=== PATIENT | male | born 1990 | race Caucasian/White ===

== ENCOUNTER 2020-11-16 16:18 | Outpatient (REF) | payer MEDICAID, OTHER, SELFPAY ==
--- NOTE | ~2020-11-16 | XR_ITS ---
EXAMINATION: XR KNEE, LEFT CLINICAL INFORMATION: Pain COMPARISON: None TECHNIQUE: Four views of the left knee. FINDINGS: Bones and soft tissues are normal. No fracture or joint effusion. Alignment is anatomic. Joint spaces are well maintained. No abnormal soft tissue calcification. XR/XR knee LT 4V IMPRESSION: Normal left knee.
== END 2020-11-16 16:19 | disposition home or self-care (01) ==
LOC: HO.XRAY 16:18
PROVIDERS: PCP Registered Nurse; Visit Provider Registered Nurse
DX: M25.562 Pain in left knee (principal)
CPT/HCPCS: 73564

== ENCOUNTER 2023-03-22 11:20 | Outpatient (REF) | payer MEDICAID, OTHER, SELFPAY ==
[2023-03-22 13:47] LABS: Cholesterol 188 mg/dL (<200); HDL Cholesterol 55 mg/dL (>40); LDL Cholesterol Calculated 119 mg/dL (<100); Triglycerides 71 mg/dL (<150)
[2023-03-29 13:04] LABS: Testosterone, Free 107.8 pg/mL (35.0-155.0); Testosterone, Total 709 ng/dL (250-1100)
== END 2023-03-22 11:21 | disposition home or self-care (01) ==
LOC: HO.HHCL 11:20
PROVIDERS: Visit Provider Registered Nurse
DX: E78.2 Mixed hyperlipidemia (principal); Z13.89 Encounter for screening for other disorder
CPT/HCPCS: 36415; 80061; 84402; 84403

== ENCOUNTER 2024-11-15 08:14 | Outpatient (REF) | payer SELFPAY ==
--- OUTSIDE RECORDS SUMMARY | 2024-11-15 08:18 | XMS_ITS | Clinical Summary ---
Author Organization [facility] Address [address] [place] [address] Care Team Providers Care Skin Care Consultant Name Role Phone Elicia Bruce KARINA Primary Care Provider [phone] Allergies No known active allergies Medications biotin 1 mg tablet Take 1,000 mcg by mouth daily. Active omeprazole (PriLOSEC) 20 mg capsule TAKE 1 CAPSULE BY MOUTH EVERY DAY BEFORE A MEAL NEEDED 09/11/2020 Active tamsulosin (FLOMAX) 0.4 mg capsule TAKE 1 CAPSULE BY MOUTH DAILY 30 MINUTES AFTER THE SAME MEAL EVERY DAY 08/04/2020 Active ketotifen (ZADITOR) 0.025 % ophthalmic solution PLACE 1 DROP INTO THE AFFECTED EYE(S) TWICE DAILY 12/23/2019 Active atorvastatin (LIPITOR) 20 mg tablet Take 20 mg by mouth daily. 09/11/2020 Active Social History Tobacco Use Types Packs/Day Years Used Date Smoking Tobacco: Never Smokeless Tobacco: Never Sex and Gender Information Value Date Recorded Sex Assigned at Not on file Legal Sex Male 9:58 AM EDT Gender Identity Not on file Sexual Orientation Not on file Last Filed Vital Signs Vital Sign Reading Time Taken Comments Blood Pressure 121/75 03/09/2021 4:00 PM EDT Pulse 53 03/09/2021 4:00 PM EDT Temperature - - Respiratory Rate - - Oxygen Saturation - - Inhaled Oxygen Concentration - - Weight - - Height - - Body Mass Index - - Plan of Treatment Health Maintenance Due Date Last Done Comments HIV Screening 1991 Varicella Vaccines (1 of 2 - 13+ 2-dose series) 2004 Hepatitis B Vaccines (1 of 3 - 19+ 3-dose series) 2010 COVID-19 Vaccine (2023-2 5 season) 2024 12/28/2020, 11/27/2020 Alcohol/Substance Use Screening 07/10/2024 Influenza Vaccine (Season Ended) 2025 DTaP,Tdap,and Td Vaccines (2 - Td or Tdap) 03/08/2029 03/08/2019 RSV Vaccine (60+ years old and patients) (1 - 1-dose 75+ series) 2066 Pneumococcal Vaccine: Pediatric (0-5 Years) and At-Risk Patients (6-50 Years) Aged Out No longer eligible based on patient's age to complete this topic Insurance [facility] HSNO/FREE CARE Care Teams Skin Care Consultant Relationship Specialty Start Date End Date Elicia Bruce NP [address] [phone] PCP - General 02/18/22
--- OUTSIDE RECORDS SUMMARY | 2024-11-15 08:18 | XMS_ITS | Clinical Summary ---
Author Organization [email or web address] Address [address] [facility] 7 [place] [address] Care Team Providers Care Journeyman Carpenter Name Role Phone Maral Melvin NP Primary Care Provider [phone] Allergies No known active allergies Medications SM Vitamin D3 50 MCG capsule Take 50 mcg by mouth in the morning. 08/11/19 22 Active ibuprofen 800 MG tablet TAKE 1 TABLET BY MOUTH THREE TIMES DAILY WITH FOOD NEEDED FOR PAIN 08/06/19 22 Active biotin 1000 MCG tablet Take 1,000 mcg by mouth in the morning. 2024 Discontinued(M ed list cleanup (will not trigger notification to Pharmacy)) Compound W 17 % external solution APPLY TO FINGER DIRECTED NEEDED FOR 12 WEEKS 02/17/20 22 2024 Discontinued(M ed list cleanup (will not trigger notification to Pharmacy)) omeprazole (PriLOSEC) [address] capsule TAKE 1 CAPSULE BY MOUTH EVERY DAY BEFORE A MEAL NEEDED 05/20/20 22 2024 Discontinued(M ed list cleanup (will not trigger notification to Pharmacy)) Multiple Vitamins-Minerals (Multivitamin Gummies Adult) chewable tablet Take 1 gummy a day 02/17/20 22 2024 Discontinued(M ed list cleanup (will not trigger notification to Pharmacy)) tamsulosin (Flomax) 0.4 MG 24 hr capsule TAKE 1 CAPSULE BY MOUTH DAILY 30 MINUTES AFTER THE SAME MEAL EVERY DAY 08/06/19 22 2024 Discontinued(M ed list cleanup (will not trigger notification to Pharmacy)) triamcinolone (Kenalog) 0.5 % ointment Apply topically 2 times daily. 02/02/20 18 2024 Discontinued(M ed list cleanup (will not trigger notification to Pharmacy)) omega-3 acid ethyl esters (Lovaza) 1 g capsuleIndication s:Mixed hyperlipidemia Take 1 capsule (1 g) by mouth in the morning. 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 Hepatitis C antibody test positive 08/20/2018 Vitamin D deficiency 08/20/2018 Encounters Date Type Department Care Team Description 11/01/2024 10:00 AM EDT Office Visit [facility] MED[facility] [address] [place] [phone] Maral Melvin NP Other fatigue (Primary Dx); Mixed hyperlipidemia; Hypovitaminosis D 11/01/2024 Travel 10/24/2024 Telephone [facility] [address] [place] [phone] Jimmy Godfrey MA chartprep 10/22/2024 Patient Outreach [facility] [address] [place] [address] Maral Melvin NP Pre-visit Planning ([facility] unable to reach [facility]) 10/18/2024 Telephone [facility] [address] [place] [phone] Maral Melvin NP Lab Orders (/) from Last 3 Months Family History Medical History Relation Name Comments Cancer Maternal Grandmother Diabetes Mother Relation Name Status Comments Maternal Grandmother Mother Social History Tobacco Use Types Packs/Day Years Used Date Smoking Tobacco: Former Cigarettes Smokeless Tobacco: Never Tobacco Cessation:Counseling Given: Not Answered Alcohol Use Standard Drinks/Week Comments Never 0 (1 standard drink = 0.6 oz pur e alcohol) Depression Answer Date Recorded Patient Health Questionnaire-9 Score 4 11/01/2024 Patient Health Questionnaire-9 Score 4 11/01/2024 Last PHQ-9: Questionnaire Data Not on file 0 11/01/2024 Housing Stability Answer Date Recorded What is your housing situation today? I have [place] 11/01/[address] you li ve. Do you have problems with any of the following? I am not sure 11/01/2024 Food Insecurity Answer Date Recorded Within the past 12 months, y ou worried that your food would run out before you got money to buy more: Never True 11/01/2024 Within the past 12 months,th e food you bought just didn't last and you didn't have enough money to get more: Never True Transportation Answer Date Recorded In the past 12 months, has l ack of transportation kept you from medical appts, meetings, work or from getting things needed for daily living? No 11/01/2024 Utilities Answer Date Recorded In the past 12 months, has t he electric, gas, oil or water company threatened to shut off services in your home? No 11/01/2024 Depression Answer Date Recorded Patient Health Questionnaire-2 Score 1 11/01/2024 Internet Access Answer Date Recorded Internet Access Q1 Yes 11/01/2024 Internet Access Q2 Not on file 11/01/2024 Sex and Gender Information Value Date Recorded Sex Assigned at Male 05/09/2022 10:24 AM EDT Legal Sex Male 10:24 AM EDT Gender Identity Male 05/09/2022 10:24 AM EDT Sexual Orientation Straight 05/09/2022 10 :24 AM EDT Last Filed Vital Signs Vital Sign Reading Time Taken Comments Blood Pressure 108/65 11/01/2024 10:27 AM EDT Pulse 60 11/01/2024 10:27 AM EDT Temperature 36.9 ??C (98.4 ??F) 11/01/2024 10:27 AM E DT Respiratory Rate 21 11/01/2024 10:27 AM EDT Oxygen Saturation 98% 11/01/2024 10:27 AM EDT Inhaled Oxygen Concentration - - Weight 70.4 kg (155 lb 3.2 oz) 11/01/2024 10:27 AM EDT Height 165.1 cm (5' 5 ) 11/01/2024 10:27 AM EDT Body Mass Index 25.83 11/01/2024 10:27 AM EDT Plan of Treatment Upcoming Encounters Date Type Department Care Team (Late st Contact Info) Description 12/13/2024 11:00 AM EDT Office Visit [facility] MED[facility]INE [address] [place], [place] [phone] Maral Melvin NP 230 [place] [address] Health Maintenance Due Date Last Done Comments Alcohol/Substance Use Screening 2003 Family Planning (PISQ) 2006 Hepatitis B Vaccines (1 of 3 - 19+ 3-dose series) 2010 Dental Oral Exam 07/20/2023 01/16/2023, , 07/24/2019, Additional history exists Dental Prophylaxis 07/20/2023 01/16/2023, 0 09/05/2019, 03/02/2018, Additional history exists Dental X-Ray: Bitewings 01/18/2024 01/17/20 23, 03/28/2022, 07/24/2019, Additional history exists COVID-19 Vaccine ( season) 2024 12/28/2020, 11/27/2020 Influenza Vaccine (#1) 2024 Dental X-Ray: Full Mouth 03/29/2025 03/28/2022, 0511/2016 Depression Screening 11/01/2025 11/01/2024, 11/02/19 SDOH Screening 11/01/2025 11/01/2024 Tobacco Screening 11/01/2025 11/01/2024 DTaP/Tdap/Td Vaccines (2 - Td or Tdap) 03/08/2029 03/08/2019 Zoster Vaccines (1 of 2) 2041 RSV Patients and Patients Aged 60 years or older (1 - 1-dose 75+ series) 2066 HIV Screening Completed 07/15/2022, 07/11, 07/28/2020, Additional history exists Hepatitis C Screening Completed 07/15/2022 , 07/28/2020, 01/06/2020 HIB Vaccines Aged Out No longer eligi ble based on patient's age to complete this topic HPV Vaccines Aged Out No longer eligi ble based on patient's age to complete this topic Hepatitis A Vaccines Aged Out No long er eligible based on patient's age to complete this topic IPV Vaccines Aged Out No longer eligi ble based on patient's age to complete this topic Meningococcal Vaccine Aged Out No zachary naresh eligible based on patient's age to complete this topic Pneumococcal Vaccine: Pediatrics (0 to 5 Years) and At-Risk Patients (6 to 49) Years) Aged Out No longer eligible based on patient's age to complete this topic RSV under 20 months Aged Out No longe r eligible based on patient's age to complete this topic Rotavirus Vaccines Aged Out No longer eligible based on patient's age to complete this topic Procedures Procedure Name Priority Date/Time Associated Diagnosis Comments PROPHYLAXIS - ADULT Routine 01/16/2023 2 :00 PM EDT BITEWINGS - 4 RADIOGRAPHIC IMAGES Routine 01/16/2023 2:00 PM EDT PERIODIC ORAL EVALUATION - ESTABLISHED PATIENT Routine 01/16/2023 2:00 PM EDT Excessive attrition of teeth, limited to enamel Encounter for dental examination HEPATITIS C AB W/REFL TO HCV RNA, QN, PCR Routine 07/15/2022 1:17 PM EST Routine screening for STI (sexually transmitted infection) HIV 1/2 ANTIGEN/ANTIBODY, FOURTH GENERATION W/RFL Routine 07/15/2022 1:17 PM EST Routine screening for STI (sexually transmitted infection) INTRAORAL - COMPLETE SERIES OF RADIOGRAPHIC IMAGES Routine 03/28/2022 12:00 AM EDT from Last 3 Months or Most Recently Relevant to Health Maintenance Results * Hepatitis C Antibody with Reflex to HCV, RNA, Quantitative, Real-Time PCR (07/15/2022 1:17 PM EST) Hepatitis C Antibody NON-REACT TAD NON-REACT TAD [facility] Index 0.09 <1.00 [facility] Comment: HCV antibody was non-reactive. There is no laboratory evidence of HCV infection. In most cases, no further action is required. However, if recent HCV exposure is suspected, a test for HCV RNA (test code 76206) is suggested. For additional information please refer to http://education.Parallels/faq/GAP90l0 (This link is being provided for informational/ educational purposes only.) Blood Venous blood specimen / Unknown 07/15/2022 1:17 PM EST 07/15/2022 1:18 PM EST Narrative [facility] - 07/18/2022 1:52 PM EST FASTING:YES FASTING: YES [facility] B[facility] Final Result [facility] [address], [place] [address] [facility] [place] [facility] [address], ([address]) [place] [address] * HIV-1/2 Antigen and Antibodies, Fourth Generation, with Reflexes (07/15/2022 1:17 PM EST) HIV Antigen/Antibody, 4th Generation NON-REAC TIVE NON-REAC TIVE [facility] [place] [facility] Comment: HIV-1 antigen and HIV-1/HIV-2 antibodies were not detected. There is no laboratory evidence of HIV infection. PLEASE NOTE: This information has been disclosed to you from records whose confidentiality may be protected by state law. ??If your state requires such protection, then the state law prohibits you from making any further disclosure of the information without the specific written consent of the person to whom it pertains, or as otherwise permitted by law. A general authorization for the release of medical or other information is NOT sufficient for this purpose. ?? For additional information please refer to http://education.Parallels/faq/CBZ255 (This link is being provided for informational/ educational purposes only.) The performance of this assay has not been clinically validated in patients less than 2 years old. Blood Venous blood specimen / Unknown 07/15/2022 1:17 PM EST 07/15/2022 1:18 PM EST Narrative [facility] - 07/18/2022 1:52 PM EST FASTING:YES FASTING: YES Elicia Bruce [facility] LAB BLOOD ORDERABLES Final Result [facility] [address], [place] [address] [facility] [address], ([address]) [place] [address] from Last 3 Months or Most Recently Relevant to Health Maintenance Insurance [place] [facility] ADULT DENTAL - HSN FULL (MEDICAID) Care Teams Journeyman Carpenter Relationship Specialty Start Date End Date Maral Melvin NP [address] [place] [phone] PCP - General Family Medicine 04/14/23
--- OUTSIDE RECORDS SUMMARY | 2024-11-15 08:18 | XMS_ITS | Referral Summary ---
Author Organization [facility] Address [address] [place] [address] Care Team Providers Care Inspector And Tester Name Role Phone Elicia Bruce KARINA Primary Care Provider [phone] Allergies No known active allergies Medications biotin [...] Mass Index - - Plan of Treatment Not on file Insurance [facility] HSNO/FREE CARE Care Teams Inspector And Tester Relationship Specialty Start Date End Date Elicia Bruce NP [address] [address] PCP - General 02/18/22
--- OUTSIDE RECORDS SUMMARY | 2024-11-15 08:18 | XMS_ITS | Encounter Summary ---
Author Organization [facility] Address [address] [place] [address] [address] [address] Care Team Providers Care Rating Specialist Name Role Phone Elicia Bruce Primary Care Provider [phone] Maral Melvin NP Primary Care Provider [phone] Encounter Details Date Type Department Care Team (Latest Contact Info) Description 09/05/2019 Abstract [facility] CONVERSIONS Dental, Provider, DDS Social History Tobacco Use Types Packs/Day Years Used Date Smoking Tobacco: Never Assessed Sex and Gender Information Value Date Recorded Sex Assigned at Male 05/09/2022 10:24 AM EDT Legal Sex Male 10:24 AM EDT Gender Identity Male 05/09/2022 10:24 AM EDT Sexual Orientation Straight 05/09/2022 10 :24 AM EDT documented as of this encounter Plan of Treatment Upcoming Encounters Date Type Department Care Team (Late st Contact Info) Description 12/13/2024 11:00 AM EDT Office Visit [facility] [address] [place] [address] Maral Melvin NP [address] [place] [address] documented as of this encounter Visit Diagnoses Not on filedocumented in this encounter Care Teams Rating Specialist Relationship Specialty Start Date End Date Elicia Bruce FNP PCP - General Family Medicine 08/10/21 04/13/23 Maral Melvin NP [address] [place] [address] PCP - General Family Medicine 04/14/23 documented as of this encounter
--- OUTSIDE RECORDS SUMMARY | 2024-11-15 08:18 | XMS_ITS | Encounter Summary ---
Author Organization [employer] Address [address] [place] [address] 7 [place] [address] Care Team Providers Care Aging Box Hand Name Role Phone Elicia Bruce Primary Care Provider [phone] Maral Melvin NP Primary Care Provider [phone] Reason for Visit * Reason Onset Date Comments Appointment Request 07/12/2022 Encounter Details Date Type Department Care Team (Late st Contact Info) Description 07/12/2022 Telephone [facility] MEDICINE [address] [place] [phone] Elicia Bruce FNP [address] [place] [address] Dept [place] [address] Appointment Request Social History Tobacco Use Types Packs/Day Years Used Date Smoking Tobacco: Never Assessed Depression Answer Date Recorded Patient Health Questionnaire-9 Score 0 07/14/2022 Depression Answer Date Recorded Patient Health Questionnaire-2 Score 0 07/14/2022 Sex and Gender Information Value Date Recorded Sex Assigned at Male 05/09/2022 10:24 AM EDT Legal Sex Male 10:24 AM EDT Gender Identity Male 05/09/2022 10:24 AM EDT Sexual Orientation Straight 05/09/2022 10 :24 AM EDT COVID-19 Exposure Response Date Recorded In the last 10 days, have yo u been in contact with someone who was confirmed or suspected to have Coronavirus/COVID-19? No / Unsure 07/14/2022 11:22 AM EST documented as of this encounter Miscellaneous Notes * Telephone Encounter - Anurag Reaves - 07/12/2022 4:47 PM EST Tc from pt requesting to r/s appt on 07/14/22 ( Hearing Sensity Left Ear ) Please contact pt at [phone] documented in this encounter Plan of Treatment Upcoming Encounters Date Type Department Care Team (Late st Contact Info) Description 12/13/2024 11:00 AM EDT Office Visit [facility] MEDICINE [address] [place] [address] Maral Melvin NP [address] [place] [address] documented as of this encounter Visit Diagnoses Not on filedocumented in this encounter Care Teams Aging Box Hand Relationship Specialty Start Date End Date Elicia Bruce FNP PCP - General Family Medicine 08/10/21 04/13/23 Maral Melvin NP [address] [place] [address] PCP - General Family Medicine 04/14/23 documented as of this encounter
[2024-11-15 11:07] LABS: MANUAL DIFF FLAG NO
[2024-11-15 11:15] LABS: Basophils Percent Auto 0.6 % (0-2); Eosinophils Absolute Auto 0.2 X10*3/uL (0.0-0.4); Eosinophils Percent Auto 3.2 % (0-4); Hematocrit 40.8 % (42.0-52.0); Hemoglobin 13.8 g/dl (14.0-18.0); Imm Gran Abs Auto 0.01 X10*3/uL (0.00-0.03); Imm Gran Pct Auto 0.2 % (0.0-0.4); Lymphocytes Absolute Auto 1.9 X10*3/uL (1.2-4.9); Lymphocytes Percent Auto 38.3 % (20-40); Mean Corpuscular HGB Conc 33.8 g/dl (31.0-36.0); Mean Corpuscular Hemoglobin 28.3 pg (27.0-33.0); Mean Corpuscular Volume 83.6 fL (80.0-98.0); Mean Platelet Volume 9.8 fL (9.4-12.4); Monocytes Absolute Auto 0.4 X10*3/uL (0.1-1.2); Monocytes Percent Auto 7.3 % (2-11); Neutrophils Absolute Auto 2.5 x10*3/uL (2.0-8.3); Neutrophils Percent Auto 50.4 % (45-73); Platelet Count 263 X10*3/uL (160-400); Red Blood Count 4.88 X10*6/uL (4.60-5.80); Red Cell Distribution Width 12.9 % (11.0-16.0)
[2024-11-15 11:35] LABS: Anion Gap 9 (12-20); Blood Urea Nitrogen 21 mg/dL (9-16); Calcium 9.4 mg/dL (8.4-10.2); Carbon Dioxide 30 mmol/L (22-29); Chloride 102 mmol/L (96-108); Cholesterol 206 mg/dL (<200); Estimated Glomerular Filt Rate > 60; Glucose Random 83 mg/dL (60-115); HDL Cholesterol 72 mg/dL (>40); LDL Cholesterol Calculated 120 mg/dL (<100); Sodium 137 mmol/L (135-145); Triglycerides 72 mg/dL (<150)
[2024-11-15 11:52] LABS: TSH reflex Free T4 2.34 uIU/mL (0.32-4.0); Vitamin D 25-OH Total 89.7 ng/mL (>30)
[2024-11-20 16:28] LABS: Testosterone, Total 528 ng/dL (250-1100)
== END 2024-11-15 08:15 | disposition home or self-care (01) ==
LOC: HO.HHCL 08:14
PROVIDERS: Visit Provider Nurse Practitioner
DX: E78.2 Mixed hyperlipidemia (principal); R53.83 Other fatigue; E55.9 Vitamin D deficiency, unspecified
CPT/HCPCS: 36415; 80048; 80061; 82306; 84403; 84443; 85025

== ENCOUNTER 2024-12-13 12:16 | Outpatient (REF) | payer MEDICAID, OTHER, SELFPAY ==
--- OUTSIDE RECORDS SUMMARY | 2024-12-13 12:34 | XMS_ITS | Clinical Summary ---
Author Organization [employer] Address [address] [place] [address] [address] [place] [address] Care Team Providers Care Sidehand Name Role Phone Maral Melvin NP Primary Care Provider [phone] Allergies No known active allergies Medications SM Vitamin D3 50 MCG capsule Take 50 mcg by mouth in the morning. 08/11/2021 Active ibuprofen 800 MG tablet TAKE 1 TABLET BY MOUTH THREE TIMES DAILY WITH FOOD NEEDED FOR PAIN 08/06/2021 Active ferrous gluconate (Fergon) 324 (38 Fe) MG tabletIndication s:Mild anemia Take 1 tablet (324 mg) by mouth every other day. 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 Hepatitis C antibody test positive 08/20/2018 Vitamin D deficiency 08/20/2018 Encounters Date Type Department Care Team Description 12/13/2024 11:00 AM EDT Office Visit [facility] [address] [place] [phone] Maral Melvin NP Mild anemia (Primary Dx); Urinary frequency 12/13/2024 Travel 12/12/2024 Telephone [facility] [address] [place] [phone] Maral Melvin NP Chart Prep 11/01/2024 10:00 AM EDT Office Visit [facility] [address] [place] [phone] Maral Melvin NP Other fatigue (Primary Dx); Mixed hyperlipidemia; Hypovitaminosis D 11/01/2024 Travel 10/24/2024 Telephone [facility] [address] [place] [address] Jimmy Godfrey MA chartprep 10/22/2024 Patient Outreach [facility] [address] [place] [address] Maral Melvin NP Pre-visit Planning (SDOH unable to reach [facility]) 10/18/2024 Telephone [facility] [address] [place] [address] Maarl Melvin NP Lab Orders (/) from Last [...] Sign Reading Time Taken Comments Blood Pressure 112/78 12/13/2024 11:09 AM EDT Pulse 60 12/13/2024 11:09 AM EDT Temperature 36.4 ??C (97.5 ??F) 12/13/2024 11:09 AM E DT Respiratory Rate 17 12/13/2024 11:09 AM EDT Oxygen Saturation 98% 11/01/2024 10:27 AM EDT Inhaled Oxygen Concentration - - Weight 67.1 kg (148 lb) 12/13/2024 11:09 AM EDT Height 165.1 cm (5' 5 ) 12/13/2024 11:09 AM EDT Body Mass Index 24.63 12/13/2024 11:09 AM EDT Plan of Treatment Health Maintenance Due Date Last Done Comments Family Planning (PISQ) 2006 Hepatitis B Vaccines (1 of 3 - 19+ 3-dose series) 2010 Dental Oral Exam 07/20/2023 01/16/2023, , 07/24/2019, Additional history exists Dental Prophylaxis 07/20/2023 01/16/2023, 0 09/05/2019, 03/02/2018, Additional history exists Dental X-Ray: Bitewings 01/18/2024 01/17/20 23, 03/28/2022, 07/24/2019, Additional history exists COVID-19 Vaccine ( season) 2024 12/28/2020, 11/27/2020 Influenza Vaccine (Season Ended) 2025 Dental X-Ray: Full Mouth 03/29/2025 03/28/2022, 05/11/2016 Depression Screening 11/01/2025 11/01/2024, 11/02/19 SDOH Screening 11/01/2025 11/01/2024 Alcohol/Substance Use Screening 12/13/2025 12/13/2024 Disability Screening 12/13/2025 12/13/2024 Tobacco Screening 12/13/2025 12/13/2024 DTaP/Tdap/Td Vaccines (2 - Td or Tdap) [...] patient's age to complete this topic Meningococcal B Vaccine Aged Out No l onger eligible based on patient's age to complete [...] Procedure Name Priority Date/Time Associated Diagnosis Comments LIPID PANEL, STANDARD Routine 11/15/2024 8:16 AM EDT Mixed hyperlipidemia TESTOSTERONE, TOTAL, MALES (ADULT), IA Routine 11/15/2024 8:16 AM EDT Other fatigue BASIC METABOLIC PANEL Routine 11/15/2024 8:16 AM EDT Other fatigue VITAMIN D,25-OH,TOTAL,IA Routine 11/15/2024 8:16 AM EDT Hypovitaminosis D TSH W/REFLEX TO FT4 Routine 11/15/2024 8 :16 AM EDT Other fatigue CBC WITH AUTO DIFFERENTIAL Routine 11/15/2024 8:16 AM EDT Other fatigue PROPHYLAXIS - ADULT Routine 01/16/2023 2 :00 [...] Recently Relevant to Health Maintenance Results * Vitamin D, 25-Hydroxy, Total, Immunoassay (11/15/2024 8:16 AM EDT) [facility] Vitamin D 25-OH Total 89.7 >30 ng/mL [facility] Comment: Health Based Reference Values*< 20 ??ng/mL ??Cyfjqpmsb23-93 ng/mL ??Insufficient> 30 ??ng/mL ??Sufficient*Piyush VERAS. N Engl J Med. 2007;357:266-280There is no well-established upper level of normal vitamin Dlevels. Some laboratories use 50 ng/mL as an upper limit ofnormal. However, toxicity is patient-dependent and may occurat any level. Careful correlation with the patient'spresentation is necessary and, if there is concern forvitamin D toxicity, treatment should be consideredirrespective of the serum level.Care must be taken in interpreting Vitamin D results fromdifferent laboratories and methodologies. ??Published datademonstrated that results from patients undergoinghemodialysis may show a negative bias when tested withvarious automated 25-OH vitamin D assays when compared toLC- MS/MS.When testing samples from patients whose predominant form ofVitamin D is Vitamin D2, such as patients receiving VitaminD2 supplementation, results that are subtherapeutic shouldbe confirmed with another method such as LC-MS/MS. Blood Venous blood specimen / Unknown 11/15/2024 8:16 AM EDT 11/15/2024 11:01 AM EDT [facility] DATA PROCESSING SUPERVISOR LAB BLOOD ORDERABLES Final Resu lt Performing Organization Address [facility] Co de Phone Number [facility] [address] [place] [phone] * TSH W/Reflex to FT4 (11/15/2024 8:16 AM EDT) Pathologist [facility] TSH reflex Free T4 2.34 0.32 - 4.0 uIU/mL [facility] Blood Venous blood specimen / Unknown 11/15/2024 8:16 AM EDT 11/15/2024 11:01 AM EDT [facility] DATA PROCESSING SUPERVISOR LAB BLOOD ORDERABLES Final Resu lt Performing Organization Address [facility] de Phone Number [facility] [address] [place] [phone] * (ABNORMAL) CBC auto differential (11/15/2024 8:16 AM EDT) White Blood Count 5.0 4.8 - 10.8 X10*3/uL [facility] Red Blood Count 4.88 4.60 - 5.80 X10*6/uL [facility] Hemoglobin 13.8(L) 14.0 - 18.0 g/dl [facility] Hematocrit 40.8(L) 42.0 - 52.0 % [facility] Mean Corpuscular Volume 83.6 80.0 - 98.0 fL [facility] Mean Corpuscular Hemoglobin 28.3 27.0 - 33.0 pg [facility] Mean Corpuscular HGB Conc 33.8 31.0 - 36.0 g/dl [facility] Red Cell Distribution Width 12.9 11.0 - 16.0 % [facility] Platelet Count 263 160 - 400 X10*3/uL [facility] Mean Platelet Volume 9.8 9.4 - 12.4 fL [facility] Neutrophils Percent Auto 50.4 45 - 73 % [facility] Imm Gran Pct Auto 0.2 0.0 - 0.4 % [facility] Lymphocytes Percent Auto 38.3 20 - 40 % [facility] Monocytes Percent Auto 7.3 2 - 11 % [facility] Eosinophils Percent Auto 3.2 0 - 4 % [facility] Basophils Percent Auto 0.6 0 - 2 % [facility] NRBC Pct Auto 0.0 0.0 - 0.2 /100WBC [facility] Neutrophils Absolute Auto 2.5 2.0 - 8.3 x10*3/uL [facility] Imm Gran Abs Auto 0.01 0.00 - 0.03 X10*3/uL [facility] Lymphocytes Absolute Auto 1.9 1.2 - 4.9 X10*3/uL [facility] Monocytes Absolute Auto 0.4 0.1 - 1.2 X10*3/uL [facility] Eosinophils Absolute Auto 0.2 0.0 - 0.4 X10*3/uL [facility] Basophils Absolute Auto 0.0 0.0 - 0.2 X10*3/uL [facility] NRBC Abs Auto 0.000 0.0 - 0.012 X10*3/uL [facility] Blood Venous blood specimen / Unknown 11/15/2024 8:16 AM EDT 11/15/2024 11:01 AM EDT us Maral Melvin NP LAB BLOOD ORDERABLES Final Resu lt [facility] [address] [place] [phone] * Testosterone, Total, males (Adult), IA (11/15/2024 8:16 AM EDT) Pathologist [facility] Testosterone, Total 528 250 - 1100 ng/dL [facility] Comment:For additional infor figueroa, please refer tohttp://education.[employer]/faq/CcznzMhutvxeiyneyERFFDWFAB961(This link is being provided for informational/educational purposes only.)This test was developed and its analytical performancecharacteristics have been determined by [employer] [place], [place]. It hasnot been cleared or approved by the U.S. Food and DrugAdministration. This assay has been validated pursuantto the CLIA regulations and is used for clinicalpurposes.THIS TEST WAS PERFORMED AT:[id number] [place] [address]GOETSNWRIN BHATIA MD,PHD Blood Venous blood specimen / Unknown 11/15/2024 8:16 AM EDT 11/15/2024 11:01 AM EDT us Maral Byrd DATA PROCESSING SUPERVISOR LAB BLOOD ORDERABLES Final Resu lt [facility] [address] [place] [phone] * (ABNORMAL) Lipid Panel, Standard (11/15/2024 8:16 AM EDT) Pathologist [facility] Triglycerides 72 <150 mg/dL [facility] Comment:Desirable Triglyceri de: less than 150 mg/dLBorderline High Triglyceride 150-199 mg/dLHigh Triglyceride: 200-499 mg/dLVery High Triglyceride: greater than or equal to 5OO mg/dL Cholesterol 206(H) <200 mg/dL [facility] Comment:Desirable Cholestero l: less than 200 mg/dLBorderline High Cholesterol: 200-239 mg/dLHigh Cholesterol: greater than 239 mg/dL LDL Cholesterol Calculated 120(H) <100 mg/dL [facility] Comment:Desirable LDL: less than 100 mg/dLNear Optimal/Above Optimal LDL: 110- 129 mg/dLBorderline High LDL: 130-159 mg/dLHigh LDL: 160-189 mg/dLVery High LDL: greater than or equal to 190 mg/dL HDL Cholesterol 72 >40 mg/dL [facility] Comment:Desirable HDL: great er than 40 mg/dL Note: This HDL assay may give artificially low results in patients with liver disease. Blood Venous blood specimen / Unknown 11/15/2024 8:16 AM EDT 11/15/2024 11:01 AM EDT Maral Byrd DATA PROCESSING SUPERVISOR LAB BLOOD ORDERABLES Final Resu lt Performing Organization Address City/[facility]/ZIP Co de Phone Number [facility] [address] [place] [address] [phone] * (ABNORMAL) Basic Metabolic Panel (11/15/2024 8:16 AM EDT) Sodium 137 135 - 145 mmol/L [facility] Potassium 4.0 3.3 - 5.1 mmol/L [facility] Chloride 102 96 - 108 mmol/L [facility] Carbon Dioxide 30(H) 22 - 29 mmol/L [facility] Anion Gap 9(L) 12 - 20 [facility] Urea Nitrogen (BUN) 21(H) 9 - 16 mg/dL [facility] Creatinine, Serum 0.94 0.5 - 1.4 mg/dL [facility] Estimated Glomerular Filt Rate >60 [facility] Comment:Chronic Kidney Disea se: Estimated GFR < 60 mL/min/1.20h1Ejaccy Kidney Disease: Estimated GFR < 15 mL/min/1.73m2 Glucose 83 60 - 115 mg/dL [facility] Calcium 9.4 8.4 - 10.2 mg/dL [facility] Blood Venous blood specimen / Unknown 11/15/2024 8:16 AM EDT 11/15/2024 11:01 AM EDT Maral Carson DATA PROCESSING SUPERVISOR LAB BLOOD ORDERABLES Final Resu lt [facility] [address] [place] [phone] * Hepatitis C Antibody with Reflex to HCV, RNA, Quantitative, Real-Time PCR (07/15/2022 1:17 PM EST) Hepatitis C Antibody NON-REACT TAD NON-REACT TAD [facility] [place] [facility] Index 0.09 <1.00 [facility] Comment: HCV antibody was non-reactive. There is no laboratory evidence of HCV infection. In most cases, no further action is required. However, if recent HCV exposure is suspected, a test for HCV RNA (test code 79836) is suggested. For additional information please refer to http://education.[employer]/faq/QGI11d3 (This link is being provided for informational/ educational purposes only.) Blood Venous blood specimen / Unknown 07/15/2022 1:17 PM EST 07/15/2022 1:18 PM EST Narrative [facility] - 07/18/2022 1:52 PM EST FASTING:YES FASTING: YES Elicia Bruce [facility] LAB BLOOD ORDERABLES Final Result [facility] [address] [facility], [facility], [place] [address] [facility] [place] [facility] [address] [facility], ([address]) [place] [phone] * HIV-1/2 Antigen and Antibodies, Fourth Generation, with Reflexes (07/15/2022 1:17 PM EST) HIV Antigen/Antibody, 4th Generation NON-REAC TIVE NON-REAC TIVE [facility] [place] [facility] Comment: HIV-1 antigen and HIV-1/HIV-2 antibodies were [...] ?? For additional information please refer to http://education.[employer]/faq/MWE463 (This link is being provided for informational/ educational purposes only.) The performance of this assay has not been clinically validated in patients less than 2 years old. Blood Venous blood specimen / Unknown 07/15/2022 1:17 PM EST 07/15/2022 1:18 PM EST Narrative [facility] - 07/18/2022 1:52 PM EST FASTING:YES FASTING: YES Elicia Bruce [employer] LICENSE EXAMINER LAB BLOOD ORDERABLES Final Result [facility] [address] [facility], [facility], [place] [address] [facility] [address] [facility], ([address]) [place] [address] from Last 3 Months or Most Recently Relevant to Health Maintenance Insurance [facility] LIMITED HSN FULL DENTAL - HSN FULL (MEDICAID) * Guarantor: Rajendra Maldonado Account Type Relation to Patient Date of Phone Billing Address Personal/Family Self [address] Care Teams Sidehand Relationship Specialty Start Date End Date Maral Melvin NP [address] [place] [phone] PCP - General Family Medicine 04/14/23
[2024-12-13 13:23] LABS: Appearance Urine Clear; Color Urine Yellow; Glucose Urine UA Negative (Negative); Leukocyte Esterase Urine Negative (Negative); Nitrite Urine Negative (Negative); PH 5.5 (5.0-9.0); Urine Blood Negative (Negative); Urine Ketones Negative (Negative); Urine Protein Negative (Neg-Trace)
[2024-12-13 13:27] LABS: Bacteria Urine None Seen (None Seen); Hyaline Casts Urine 0-2 /LPF (0-2); RBC Urine 0-2 /HPF (0-2); Squamous Epithelial Cell Urine 0-2 /HPF (0-2); WBC Urine 0-5 /HPF (0-5)
[2024-12-19 13:53] LABS: Mycoplasma genitalium RNA Not Detected (Not Detected); Mycoplasma hominis PCR Not Detected (Not Detected); Ureaplasma parvum PCR Not Detected (Not Detected); Ureaplasma urealyticum PCR Detected (Not Detected)
== END 2024-12-13 12:17 | disposition home or self-care (01) ==
LOC: HO.HHCL 12:16
PROVIDERS: Visit Provider Nurse Practitioner
DX: R35.0 Frequency of micturition (principal)
CPT/HCPCS: 81001; 87563; 87798

== ENCOUNTER 2025-02-01 14:09 | Outpatient (REF) | payer MEDICAID, OTHER, SELFPAY ==
[2025-02-01 15:57] LABS: CT PCR Urine NOT DETECTED (Not Detect.); NG PCR Urine NOT DETECTED (Not Detect.)
== END 2025-02-01 14:10 | disposition home or self-care (01) ==
LOC: HO.LNP 14:09
PROVIDERS: Visit Provider Internal Medicine
DX: R39.9 Unspecified symptoms and signs involving the genitourinary system (principal); Z11.8 Encounter for screening for other infectious and parasitic diseases
CPT/HCPCS: 87491; 87591

== ENCOUNTER 2025-03-25 16:13 | Outpatient (REF) | payer MEDICAID, OTHER, SELFPAY ==
--- NOTE | ~2025-03-25 | US_ITS ---
EXAMINATION: US KIDNEY BILATERAL HISTORY: Frequency of micturition TECHNIQUE: Real-time grayscale ultrasound imaging of the kidneys was performed and images were reviewed. COMPARISON: There are no prior studies available for comparison. FINDINGS: Right kidney: The right kidney measures 10.0 x 4.8 x 5.2 cm. Renal parenchymal echotexture and thickness are normal. There are no masses. There is no hydronephrosis or renal calculi. Left Kidney: The left kidney measures 10.0 x 6.1 x 5.0 cm. Renal parenchymal echotexture and thickness are normal. There are no masses. There is no hydronephrosis or renal calculi. US/US renal BI IMPRESSION: Unremarkable renal ultrasound. Electronically signed by: Mohamud Perdomo MD 03/26/2025 07:05 AM EDT
--- OUTSIDE RECORDS SUMMARY | 2025-03-25 19:06 | XMS_ITS | Encounter Summary ---
Author Organization [facility] Address [address] [place] [address] [address] [place] [address] Care Team Providers Care Transplant Registered Nurse Name Role Phone Elicia Bruce Primary Care Provider Maral Leonardo SCIENTIFIC DIVER Primary Care Provider [phone] Encounter Details Date Type Department Care Team (Latest Contact Info) Description 09/05/2019 Abstract C CONVERSIONS Dental, Provider, DDS Social History Tobacco Use Types Packs/Day Years Used Date Smoking Tobacco: Never Assessed Sex and Gender Information Value Date Recorded Sex Assigned at Male 05/09/2022 10:24 AM EDT Legal Sex Male 10:24 AM EDT Gender Identity Male 05/09/2022 10:24 AM EDT Sexual Orientation Straight 05/09/2022 10 :24 AM EDT documented as of this encounter Plan of Treatment Not on file documented as of this encounter Visit Diagnoses Not on filedocumented in this encounter Care Teams Transplant Registered Nurse Relationship Specialty Start Date End Date Elicia Bruce FNP PCP - General Family Medicine 08/10/21 04/13/23 Maral Melvin NP [address] [place] [address] PCP - General Family Medicine 04/14/23 documented as of this encounter
--- OUTSIDE RECORDS SUMMARY | 2025-03-25 19:06 | XMS_ITS | Clinical Summary ---
Author Organization [facility] Address [address] [facility] [address] [place] [phone] Phone Care Team Providers Care It Help Desk Manager Name Role Phone Unknown, Unknown Primary Care Provider Unavai lable Allergies No known active allergies Medications biotin 1 mg tablet Take 1,000 mcg by mouth daily. Active triamcinolone acetonide 0.5 % ointment Apply topically 2 (two) times a day. 30 g 8 Active Social History Tobacco Use Types Packs/Day Years Used Date Smoking Tobacco: Some Days Smokeless Tobacco: Never Alcohol Use Standard Drinks/Week Comments Yes 4 (1 standard drink = 0.6 oz pur e alcohol) weekends Education Answer Date Recorded Are you interested in more education? Not on renata e 11/04/2022 Are you concerned about learning? Not on file 11/04/2022 No 11/04/2022 No 11/04/2022 Digital Access Answer Date Recorded No 12/05/2022 No 12/05/2022 No 12/05/2022 Reliable internet access at home? Not on file 12/05/2022 Device with a working camera? Not on file Sex and Gender Information Value Date Recorded Sex Assigned at Male 02/01/2018 3:20 PM EDT Legal Sex Male 9:00 PM EDT Gender Identity Male 02/01/2018 3:20 PM EDT Sexual Orientation Not on file Last Filed Vital Signs Vital Sign Reading Time Taken Comments Blood Pressure 109/69 02/01/2018 5:06 PM EDT Pulse 60 02/01/2018 5:06 PM EDT Temperature 36.5 C (97.7 F) 02/01/2018 5:06 PM EDT Respiratory Rate 16 02/01/2018 3:17 PM EDT Oxygen Saturation 99% 02/01/2018 5:06 PM EDT Inhaled Oxygen Concentration - - Weight 65.8 kg (145 lb) 02/01/2018 3:17 PM EDT Height 165.1 cm (5' 5 ) 02/01/2018 3:17 PM EDT Body Mass Index 24.13 02/01/2018 3:17 PM EDT Plan of Treatment Not on file Medical Devices Not on file Insurance [employer] [facility] FULL [employer] NET FULL [employer] LIMITED [facility] SAFETY NET FULL [employer] LIMITED [facility] SAFETY NET FULL [employer] LIMITED [facility] FULL [employer] LIMITED [facility] SAFETY NET FULL [facility] [facility] FULL [facility] NET FULL [facility] LIMITED [facility] FULL Care Teams It Help Desk Manager Relationship Specialty Start Date End Date Unknown, Unknown, PCP - General 02/01/18 Additional Source Comments The information contained in this document represents components of the legal health record. It is not the complete legal health record.[facility]
--- OUTSIDE RECORDS SUMMARY | 2025-03-25 19:06 | XMS_ITS | Encounter Summary ---
Author Organization [employer] Address [address] [facility] [address], [place] [address] Care Team Providers Care Garland Machine Operator Name Role Phone Elicia BruceP Primary Care Provider Maral Leonardo IN SERVICE EDUCATION TEACHER Primary Care Provider [phone] Reason for Visit * Reason Onset Date Comments Appointment Request 07/12/2022 Encounter Details Date Type Department Care Team (Late st Contact Info) Description 07/12/2022 Telephone [facility] [address] [place] [phone] Elicia Bruce FNP Appointment Request Social History Tobacco Use Types [...] AM EST documented as of this encounter Functional Status * Over the past 2 weeks, how often have you been bothered by any of the following problems? Question Answer Date of Assessment Author Patient Health Questionnaire-2 Score 0 11/2022 12:12 PM EST Lavonne Serrano * Over the past 2 weeks, how often have you been bothered by any of the following problems? Question Answer Date of Assessment Author Little interest or pleasure in doing things Not at all 07/14/2022 12:12 PM Lavonne Rodriguez Feeling down, depressed, or hopeless Not at all 07/14/2022 12:12 PM Lavonne Rodriguez Trouble falling or staying asleep, or sleeping too much Not at all 07/14/2022 12:12 PM Lavonne Rodriguez Feeling tired or having lewis le energy Not at all 07/14/2022 12:12 PM Lavonne Rodriguez Poor appetite or overeating Not at all 07/14/2022 12 :12 PM Lavonne Rodriguez Feeling bad about yourself - or that you are a failure or have let yourself or your family down Not at all 07/14/2022 12:12 PM Lavonne Huntley res Trouble concentrating on thi ngs, such as reading the newspaper or watching television Not at all 07/14/2022 12:12 PM Lavonne Rodriguez Moving or speaking so slowly that other people could have noticed? Or the opposite - being so fidgety or restless that you have been moving around a lot more than usual. Not at all 07/14/2022 12:12 PM Lavonne Rodriguez Thoughts that you would be b asiya off or hurting yourself in some way Not at all 07/14/2022 12:12 PM Lavonne Rodriguez Patient Health Questionnaire -9 Score 0 07/14/2022 12:12 PM Lavonne Rodriguez documented as of this encounter Miscellaneous Notes * Telephone Encounter - Anurag Reaves - 07/12/2022 4:47 PM EST Tc from pt requesting to r/s appt on 07/14/22 ( Hearing Sensity Left Ear ) Please contact pt at [phone] documented in this encounter Plan of Treatment Not on file documented as of this encounter Visit Diagnoses Not on filedocumented in this encounter Care Teams Garland Machine Operator Relationship Specialty Start Date End Date Elicia Bruce FNP PCP - General Family Medicine 08/10/21 04/13/23 Maral Melvin NP [address] [place] [phone] PCP - General Family Medicine 04/14/23 documented as of this encounter
--- OUTSIDE RECORDS SUMMARY | 2025-03-25 19:06 | XMS_ITS | Clinical Summary ---
Author Organization [employer] Address [address] [place] [address] 7 [place] [address] Care Team Providers Care Linux Systems Administrator Name Role Phone Maral Melvin NP Primary Care Provider [phone] Allergies No known active allergies Medications SM Vitamin D3 50 MCG capsule Take 50 mcg by mouth in the morning. 08/11/2021 Active ibuprofen 800 MG tablet TAKE 1 TABLET BY MOUTH THREE TIMES DAILY WITH FOOD NEEDED FOR PAIN 08/06/2021 Active Active Problems Problem Noted Date Diagnosed Date Lower urinary tract symptoms (LUTS) 02/01/2025 Assessment & Plan (02/02/2025 5:57 PM EDT): No evidence of UTI today, however there is a previous urine test on 12/13/2024 showing Ureaplasma (LIBERTAD) which according to patient has never been treated, I do not see Rx for antibiotics within the past month. Rx doxycycline x 2 weeks due to duration of symptoms, concern for prostatitis. Concern regarding BPH or some other obstruction that is producing patient's recurrent symptoms since 2020 okay, no hematuria so there is less concern for kidney stones. Patient declined GEOVANNY. Refer to urologist Follow-up GC/chlamydia urine results Erectile disorder 01/30/2025 Assessment & Plan (03/11/2025 11:52 AM EDT): -Sexual Health Inventory for men (ALFONSO) score 19 indicating mild ED -symptoms potentially due to physiological abnormalities in the form of penile plaques as described by patient or psychogenic as he is able to achieve erections with masturbation -will refer to urology for further testing Assessment & Plan (01/30/2025 11:06 AM EDT): -pt with documented penile disorder which may be contributing to his erection difficulties -labs ordered to r/o vascular disease contribution -consider referral to urology pending lab results Hyperlipidemia 08/12/2021 Assessment & Plan (03/11/2025 11:46 AM EDT): -diet reviewed in detail to identify source -encouraged to decrease amount of yolk consumed daily in addition to excessive consumption of animal fats -suspect genetic component -no initiation of statin medication at this time as patient is not diabetic or hypertensive -plan to revisit need for cholesterol lowering medication with persistent elevation despite dietary changes -patient agrees with the plan Assessment & Plan (01/30/2025 11:05 AM EDT): -mildly elevated LDL of 119 mg/dL 1 year ago. 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 Hepatitis C antibody test positive 08/20/2018 Vitamin D deficiency 08/20/2018 Encounters Date Type Department Care Team Description 02/11/2025 Telephone [facility] [address] [place] [phone] Maral Melvin NP Medication Question 02/01/2025 11:40 AM EDT Office Visit [facility] [address] [place] [phone] Sommer Xavier MD Lower urinary tract symptoms (LUTS) (Primary Dx); Urine frequency 02/01/2025 Travel 01/31/2025 Telephone [facility] [address] [place] [address] Maral Melvin NP Nurse Triage from Last 3 Months Family History Medical History Relation Name Comments Cancer Maternal Grandmother Diabetes Mother Relation Name Status Comments Maternal Grandmother Mother Social History Tobacco Use Types Packs/Day Years Used Date Smoking Tobacco: Former Cigarettes Passive Smoke Exposure: Past Smokeless Tobacco: Never Tobacco Cessation:Counseling Given: Not [...] Sign Reading Time Taken Comments Blood Pressure 114/66 02/01/2025 11:42 AM EDT Pulse 65 02/01/2025 11:42 AM EDT Temperature 36.7 C (98 F) 02/01/2025 11:42 AM EDT Respiratory Rate 20 02/01/2025 11:42 AM EDT Oxygen Saturation 98% 02/01/2025 11:42 AM EDT Inhaled Oxygen Concentration - - Weight 67.1 kg (148 lb) 02/01/2025 11:42 AM EDT Height 165.1 cm (5' 5 ) 02/01/2025 11:42 AM EDT Body Mass Index 24.63 02/01/2025 11:42 AM EDT Plan of Treatment Health Maintenance Due Date Last Done Comments Family Planning (PISQ) 2006 HPV Vaccines (1 - Male 3-dose series) 2006 Hepatitis B Vaccines (1 of 3 - 19+ 3-dose series) 2010 Dental Oral Exam 07/20/2023 01/16/2023, , 07/24/2019, Additional history exists Dental Prophylaxis 07/20/2023 01/16/2023, 0 09/05/2019, 03/02/2018, Additional history exists Dental X-Ray: Bitewings 01/18/2024 01/17/20 23, 03/28/2022, 07/24/2019, Additional history exists COVID-19 Vaccine ( - season) 2025 12/28/2020, 11/27/2020 Influenza Vaccine (#1) 2025 Dental X-Ray: Full Mouth 03/29/2025 03/28/2022, 05/11/2016 Depression Screening 11/01/2025 11/01/2024, 11/02/19 SDOH Screening 11/01/2025 11/01/2024 Alcohol/Substance Use Screening 12/13/2025 12/13/2024 Disability Screening 12/13/2025 12/13/2024 Tobacco Screening 02/01/2026 02/01/2025 DTaP/Tdap/Td Vaccines (2 - Td or Tdap) [...] Years) and At-Risk Patients (6 to 49) Years Aged Out No longer eligible based on patient's age to complete this topic RSV under 20 months Aged Out No longe r eligible based on patient's age to complete this topic Rotavirus Vaccines Aged Out No longer eligible based on patient's age to complete this topic Procedures Procedure Name Priority Date/Time Associated Diagnosis Comments POCT URINALYSIS DIPSTICK Routine 02/01/2025 11:54 AM EDT Urine frequency CHLAMYDIA/TRICHOMONAS /NEISSERIA GONORRHOEAE, PCR, URINE Routine 02/01/2025 12:00 AM EDT Lower urinary tract symptoms (LUTS) PROPHYLAXIS - ADULT Routine 01/16/2023 2 :00 [...] Recently Relevant to Health Maintenance Results * POCT Urinalysis (02/01/2025 11:54 AM EDT) Color, UA Yellow Clarity, UA Clear Glucose, UA Negative Bilirubin, UA Negative Ketones, UA Negative Spec Grav, UA 1.015 Blood, UA Negative Negative, None Detected pH, UA 7.5 Protein, UA Negative Urobilinogen, UA 0.2 Leukocytes, UA Negative Negative, Rare, Trace Nitrite, UA Negative Negative, None Detected Appearance, UA yellow QC Media Lot # [id number] Lot# Expiration Date [id number] Urine 02/01/2025 11:5 4 AM EDT Sommer Xavier MD POINT OF CARE TEST ENTER /EDIT ORDERABLES Final Result * Chlamydia/N. Gonorrhoeae, PCR, Urine (02/01/2025 12:00 AM EDT) CT PCR, Urine NOT DETECTED Not Detect. [facility] Comment:A not detected test result does not exclude the possibilityof infection because test results can be affected byimproper specimen collection, concurrent antibiotic therapy,or the number of organisms in the specimen which may bebelow the sensitivity of the test. As with many diagnostictests, results from the Xpert CT/NG assay should beinterpreted in conjunction with other laboratory andclinical data available to the clinician.The Xpert CT/NG assay should not be used for the evaluationof suspected sexual abuse or for other medico-legalindications. Additional testing is recommended in anycircumstance when false positive or false negative resultscould lead to adverse medical, social or psychologicalconsequences. NG PCR, Urine NOT DETECTED Not Detect. [facility] Comment:A not detected test result does not exclude the possibilityof infection because test results can be affected byimproper specimen collection, concurrent antibiotic therapy,or the number of organisms in the specimen which may bebelow the sensitivity of the test. As with many diagnostictests, results from the Xpert CT/NG assay should beinterpreted in conjunction with other laboratory andclinical data available to the clinician.The Xpert CT/NG assay should not be used for the evaluationof suspected sexual abuse or for other medico-legalindications. Additional testing is recommended in anycircumstance when false positive or false negative resultscould lead to adverse medical, social or psychologicalconsequences. Urine (Urine, Random) 02/01/2025 02/01/2025 Sommer Xavier MD LAB URINE ORDERABLES Fin al Result [facility] [address] [place] [phone] [phone] * Hepatitis C Antibody with Reflex to HCV, RNA, Quantitative, Real-Time PCR (07/15/2022 1:17 PM EST) Hepatitis C Antibody NON-REACT TAD NON-REACT TAD [facility] [employer] Index 0.09 <1.00 [facility] [employer] Comment: HCV antibody was non-reactive. There is no laboratory evidence of HCV infection. In most cases, no further action is required. However, if recent HCV exposure is suspected, a test for HCV RNA (test code 41609) is suggested. For additional information please refer to http://education.Snipshot/faq/UIM42i0 (This link is being provided for informational/ educational purposes only.) Blood Venous blood specimen / Unknown 07/15/2022 1:17 PM EST 07/15/2022 1:18 PM EST Narrative [facility] - 07/18/2022 1:52 PM EST FASTING:YES FASTING: YES Elicia Bruce ELECTRICIAN MANAGER LAB BLOOD ORDERABLES Final Result [facility] [address] [facility], [facility], [place] [address] [facility] [employer] [address] [facility], ([address]) [place] [address] * HIV-1/2 Antigen and Antibodies, Fourth Generation, with Reflexes (07/15/2022 1:17 PM EST) HIV Antigen/Antibody, 4th Generation NON-REAC TIVE NON-REAC TIVE [facility] [employer] Comment: HIV-1 antigen and HIV-1/HIV-2 antibodies were not detected. There is no laboratory evidence of HIV infection. PLEASE NOTE: This information has been disclosed to you from records whose confidentiality may be protected by state law. If your state requires such protection, then the state law prohibits you from making any further disclosure of the information without the specific written consent of the person to whom it pertains, or as otherwise permitted by law. A general authorization for the release of medical or other information is NOT sufficient for this purpose. For additional information please refer to http://education.[employer].[facility]/faq/DAA490 (This link is being provided for informational/ educational purposes only.) The performance of this assay has not been clinically validated in patients less than 2 years old. Blood Venous blood specimen / Unknown 07/15/2022 1:17 PM EST 07/15/2022 1:18 PM EST Narrative [facility] - 07/18/2022 1:52 PM EST FASTING:YES FASTING: YES us Elicia Bruce ELECTRICIAN MANAGER LAB BLOOD ORDERABLES Final Result [facility] [address] [facility], [facility], [place] [address] [facility] [address] [facility], ([address]) [place] [address] from Last 3 Months or Most Recently Relevant to Health Maintenance Insurance [facility] HSN FULL DENTAL-[facility] LIMITED ADULT DENTAL - HSN FULL (MEDICAID) Care Teams Linux Systems Administrator Relationship Specialty Start Date End Date Maral Melvin NP [address] [place] [phone] PCP - General Family Medicine 04/14/23
--- OUTSIDE RECORDS SUMMARY | 2025-03-25 19:06 | XMS_ITS | Clinical Summary ---
Author Organization [facility] Address [address] [place] [address] Care Team Providers Care Chemical Tank Worker Name Role Phone Elicia Bruce KARINA Primary Care Provider [phone] Allergies No known active allergies Medications biotin [...] 20 mg by mouth daily. 09/11/2020 Active Encounters Date Type Department Care Team Description 02/19/2025 Transcribe Orders [facility] [address] [place] [phone] Sommer Xavier Lower urinary tract symptoms (LUTS) (Primary Dx); Urinary frequency; Nocturia from Last 3 Months Social History Tobacco Use Types Packs/Day Years Used Date Smoking Tobacco: Never Smokeless Tobacco: Never Sex and Gender Information Value Date Recorded Sex Assigned at Male 02/19/2025 8:53 AM EDT Legal Sex Male 9:58 AM EDT Gender [...] of 3 - 19+ 3-dose series) 2010 Alcohol/Substance Use Screening 07/10/2024 COVID-19 Vaccine (3 - 2024-2 6 season) 2025 12/28/2020, 11/27/2020 Influenza Vaccine (#1) 2025 DTaP,Tdap,and Td Vaccines (2 - Td or Tdap) 03/08/2029 03/08/2019 RSV Vaccine (60+ years old and patients) (1 - 1-dose 75+ series) 2066 Pneumococcal Vaccine: Pediatric (0-5 Years) and At-Risk Patients (6-50 Years) Aged Out No longer eligible based on patient's age to complete this topic Insurance [employer] HSNO/FREE CARE Care Teams Chemical Tank Worker Relationship Specialty Start Date End Date Elicia Bruce NP [address] [address] PCP - General 02/18/22
== END 2025-03-25 16:14 | disposition home or self-care (01) ==
LOC: HO.US 16:13
PROVIDERS: PCP Internal Medicine; Visit Provider Internal Medicine
DX: R35.0 Frequency of micturition (principal)
CPT/HCPCS: 76775

== ENCOUNTER → 2025-03-25 16:28 | Outpatient (BNV) | payer MEDICAID, SELFPAY | PROVIDERS: PCP Internal Medicine; Visit Provider Radiology Diagnostic Radiology | DX: R35.0 Frequency of micturition (principal) | CPT/HCPCS: 76775 ==

== ENCOUNTER 2025-04-17 12:37 | Outpatient (REF) | payer MEDICAID, OTHER, SELFPAY | END 2025-04-17 12:38 | disposition home or self-care (01) | LOC: HO.LNP 12:37 | PROVIDERS: Visit Provider Emergency Medicine | DX: R30.0 Dysuria (principal) | CPT/HCPCS: 87086; 87491; 87591 ==

== ENCOUNTER 2025-04-23 15:30 | Outpatient (REF) | payer MEDICAID, OTHER, SELFPAY ==
[2025-04-23 18:52] LABS: Prostate Specific Antigen 0.50 ng/mL (<0.05-4.0)
--- OUTSIDE RECORDS SUMMARY | 2025-04-23 19:00 | XMS_ITS | Clinical Summary ---
Author Organization [employer] Address [address] [place] [address] 7 [place] [address] Care Team Providers Care Sampler Pickup Name Role Phone Maral Melvin NP Primary Care Provider [phone] Allergies No known active allergies Medications SM [...] Encounters Date Type Department Care Team Description 04/17/2025 Telephone [facility] [address] [place] [phone] [address]/NG not perform 04/16/2025 9:00 AM EDT Office Visit [facility] [address] [address] Shaheed Cervantes MD Dysuria (Primary Dx) 04/16/2025 Travel 04/14/[address] [address] Maral Melvin NP Nurse Triage 03/25/2025 Orders Only [facility] [address] [place] [phone] Sommer Xavier MD 02/11/[address] [address] Maral Melvin NP Medication Question 02/01/2025 11:40 AM EDT Office Visit [facility] [address] [place] [phone] Sommer Xavier MD Lower urinary tract symptoms (LUTS) (Primary Dx); Urine frequency 02/01/2025 Travel 01/31/2025 Telephone [facility] [address] [place] [address] [phone] Maral Melvin NP Nurse Triage from Last [...] Sign Reading Time Taken Comments Blood Pressure 117/67 04/16/2025 8:53 AM EDT Pulse 63 04/16/2025 8:53 AM EDT Temperature 36.3 C (97.4 F) 04/16/2025 8:53 AM EDT Respiratory Rate 18 04/16/2025 8:53 AM EDT Oxygen Saturation 96% 04/16/2025 8:53 AM EDT Inhaled Oxygen Concentration - - Weight 67.4 kg (148 lb 9.6 oz) 04/16/2025 8:53 A M EDT Height 165.1 cm (5' 5 ) 02/01/2025 11:42 AM EDT Body Mass Index 24.73 02/01/2025 11:42 AM EDT Plan of Treatment [...] Additional history exists COVID-19 Vaccine ( season) 2025 12/28/2020, 11/27/2020 Influenza Vaccine (#1) 2025 Dental X-Ray: Full Mouth 03/29/2025 03/28/2022, 05/11/2016 Depression Screening 11/01/2025 11/01/2024, 11/02/19 SDOH Screening 11/01/2025 11/01/2024 Alcohol/Substance Use Screening 12/13/2025 12/13/2024 Disability Screening 12/13/2025 12/13/2024 Tobacco Screening 04/16/2026 04/16/2025 DTaP/Tdap/Td Vaccines (2 - Td or Tdap) [...] Procedure Name Priority Date/Time Associated Diagnosis Comments PSA, TOTAL Routine 04/23/2025 3:37 PM EDT Urinary frequency CULTURE, URINE, ROUTINE Routine 04/17/2025 9:47 AM EDT Dysuria POCT URINALYSIS DIPSTICK Routine 04/16/2025 9:46 AM EDT Dysuria US RENAL COMPLETE Routine 03/25/2025 4:2 8 PM EDT POCT URINALYSIS DIPSTICK Routine 02/01/2025 11:54 AM [...] Recently Relevant to Health Maintenance Results * PSA,Total (04/23/2025 3:37 PM EDT) Prostate Specific Antigen 0.50 <0.05 - 4.0 ng/mL [facility] Comment:PSA methodology: Brett Alicea i ChemiluminescentMicroparticle Immunoassay (CMIA) Blood Venous blood specimen / Unknown 04/23/2025 3:37 PM EDT 04/23/2025 6:12 PM EDT Maral Melvin NP LAB BLOOD ORDERABLES Final Resu lt [facility] [address] [place] [phone] * Culture, Urine, Routine (04/17/2025 9:47 AM EDT) Urine Urine specimen obtained by clean catch procedure / Unknown 04/17/2025 9:47 AM EDT 04/17/2025 12:40 PM EDT Comment:UACC Narrative [facility] - 04/18/2025 12:41 PM EDT Urine Culture No growth. Specimen Source: Urine clean catch Shaheed Cervantes MD LAB MICROBIOLOGY - GENERAL ORDER ALMA Final Result [facility] [address] [place] [phone] * POCT urinalysis dipstick manually resulted (04/16/2025 9:46 AM EDT) Only the most recent of2 resultswithin the time period is included. Color, UA Yellow Clarity, UA Clear Glucose, UA Negative Bilirubin, UA Negative Ketones, UA Negative Spec Grav, UA 1,015.000 Blood, UA Negative Negative, None Detected pH, UA 7.0 Protein, UA Negative Urobilinogen, UA 0.2 Leukocytes, UA Negative Negative, Rare, Trace Nitrite, UA Negative Negative, None Detected Urine 04/16/2025 9:46 AM EDT us Shaheed Cervantes MD POINT OF CARE TEST ENTER/EDIT OR DERABLES Final Result * US Renal Complete (03/25/2025 4:28 PM EDT) Anatomical Region Laterality Modality Kidney Ultrasound 03/25/2025 4:28 PM EDT Narrative 03/26/2025 7:08 AM EDT [address] [address] Ultrasound Report Signed Patient: Rajendra Maldonado MR#: [id number] : 1990 Acct:[id number] Age/Sex: 34 / M ADM Date: 03/25/25 Loc: HO. Attending Dr: Sommer Xavier MD Ordering Physician: Sommer Xavier MD Date of Service: 03/25/25 Procedure(s): US renal BI Accession Number(s): [id number] cc: Sommer Xavier MD Reason for Exam: Frequency of micturition EXAMINATION: US KIDNEY BILATERAL HISTORY: Frequency of micturition TECHNIQUE: Real-time grayscale ultrasound imaging of the kidneys was performed and images were reviewed. COMPARISON: There are no prior studies available for comparison. FINDINGS: Right kidney: The right kidney measures 10.0 x 4.8 x 5.2 cm. Renal parenchymal echotexture and thickness are normal. There are no masses. There is no hydronephrosis or renal calculi. Left Kidney: The left kidney measures 10.0 x 6.1 x 5.0 cm. Renal parenchymal echotexture and thickness are normal. There are no masses. There is no hydronephrosis or renal calculi. US/US renal BI IMPRESSION: Unremarkable renal ultrasound. Electronically signed by: Mohamud Perdomo MD 03/26/2025 07:05 AM EDT Dictated By: Mohamud Perdomo MD Signed By: <Electronically signed by Mohamud Perdomo MD in OV> 03/26/25 0705 DD/ 1628 TD/TT: 03/25/25 1631 Pan Shover: Procedure Note Donotuseinterpreter, Image - 03/26/2025 [place] [address] Ultrasound Report Signed Patient: Rajendra Maldonado#: M [id number] : 1990Acct:[id number] Age/Sex: 34 / MADM Date: 03/25/25 Loc: .US Attending Dr: Sommer Xavier MD Ordering Physician: Sommer Xavier MD Date of Service: 03/25/25 Procedure(s): US renal BI Accession Number(s): [id number] cc: Sommer Xavier MD Reason for Exam: Frequency of micturition EXAMINATION: US KIDNEY BILATERAL HISTORY: Frequency of micturition TECHNIQUE: Real-time grayscale ultrasound imaging of the kidneys was performed and images were reviewed. COMPARISON: There are no prior studies available for comparison. FINDINGS: Right kidney: The right kidney measures 10.0 x 4.8 x 5.2 cm. Renal parenchymal echotexture and thickness are normal. There are no masses. There is no hydronephrosis or renal calculi. Left Kidney: The left kidney measures 10.0 x 6.1 x 5.0 cm. Renal parenchymal echotexture and thickness are normal. There are no masses. There is no hydronephrosis or renal calculi. US/US renal BI IMPRESSION: Unremarkable renal ultrasound. Electronically signed by: Mohamud Perdomo MD 03/26/2025 07:05 AM EDT RP Dictated By: Mohamud Perdomo MD Signed By: <Electronically signed by Mohamud Perdomo MD in OV> 03/26/25 0705 DD/ 1628 TD/TT: 03/25/25 1631 Pan Shover: us Sommer Xavier MD [facility] US PROCEDURES Edited Result - Final * Chlamydia/N. Gonorrhoeae, PCR, Urine (02/01/2025 12:00 AM EDT) CT PCR, Urine NOT DETECTED Not Detect. [facility] Comment:A not detected test result [...] NG PCR, Urine NOT DETECTED Not Detect. [facility] Comment:A not detected test result [...] MD LAB URINE ORDERABLES Fin al Result [facility] [address] [place] [phone] [phone] * Hepatitis C Antibody with Reflex to HCV, RNA, Quantitative, Real-Time PCR (07/15/2022 1:17 PM EST) Hepatitis C Antibody NON-REACT TAD NON-REACT TAD [facility] [employer] Index 0.09 <1.00 [facility] [employer] [facility] Comment: HCV antibody was non-reactive. There is no laboratory evidence of HCV infection. In most cases, no further action is required. However, if recent HCV exposure is suspected, a test for HCV RNA (test code 28033) is suggested. For additional information please refer to http://education.[employer]/S/faq/JUZ62d4 (This link is being provided for informational/ educational purposes only.) Blood Venous blood specimen / Unknown 07/15/2022 1:17 PM EST 07/15/2022 1:18 PM EST Narrative [facility] - 07/18/2022 1:52 PM EST FASTING:YES FASTING: YES Elicia Bruce [facility] LAB BLOOD ORDERABLES Final Result Performing Organization Address City/[facility]/ZIP Co de Phone Number [facility] [address] [facility] [place] [address] [facility] [place] [facility] [address] , ([address]) [place] [address] * HIV-1/2 Antigen and Antibodies, Fourth Generation, with Reflexes (07/15/2022 1:17 PM EST) HIV Antigen/Antibody, 4th Generation NON-REAC TIVE NON-REAC TIVE [facility] [employer] [facility] Comment: HIV-1 antigen and HIV-1/HIV-2 antibodies were [...] purpose. For additional information please refer to http://education.[employer] Home.[employer]/faq/STX658 (This link is being provided for informational/ educational purposes only.) The performance of this assay has not been clinically validated in patients less than 2 years old. Blood Venous blood specimen / Unknown 07/15/2022 1:17 PM EST 07/15/2022 1:18 PM EST Narrative [facility] - 07/18/2022 1:52 PM EST FASTING:YES FASTING: YES Elicia Bruce [employer] LAB BLOOD ORDERABLES Final Result [facility] [address], [place] [address] [facility] [address] [facility], ([address]) [place] [address] from Last 3 Months or Most Recently Relevant to Health Maintenance Insurance [employer] LIMITED [facility] FULL DENT[facility] MEDICA[facility] LIMITED ADULT DENTAL - HSN FULL (MEDICAID) Care Teams Sampler Pickup Relationship Specialty Start Date End Date Maral Melvin NP [address] [place] [phone] PCP - General Family Medicine 04/14/23
--- OUTSIDE RECORDS SUMMARY | 2025-04-23 19:00 | XMS_ITS | Encounter Summary ---
Author Organization [employer] Address [address] [facility] [address] [place] [address] Care Team Providers Care Regulatory Compliance Specialist Name Role Phone Maral Melvin NP Primary Care Provider [phone] Reason for Visit * Reason Onset Date Comments CT/NG not perform 04/17/2025 Encounter Details Date Type Department Care Team ([facility] st Contact Info) Description 04/17/2025 Telephone [facility] [address] [place] [address] Shaheed Cervantes MD [address] [place] [address] CT/NG not perform Social History Tobacco Use Types Packs/Day Years Used Date Smoking Tobacco: Former Cigarettes Passive Smoke Exposure: Past Smokeless Tobacco: Never Alcohol Use Standard Drinks/Week Comments Never 0 [...] AM EDT documented as of this encounter Miscellaneous Notes * Addendum Note - Ander Rai DO - 04/18/2025 8:56 AM EDTAddended by: ANDER RAI on: 04/18/2025 08:56 AM Modules accepted: Orders * Addendum Note - Kalia Alvarenga RN - 04/17/2025 4:02 PM EDTAddended by: KALIA ALVARENGA on: 04/17/2025 04:02 PM Modules accepted: Orders * Telephone Encounter - Kalia Alvarenga RN - 04/17/2025 4:00 PM EDT TC placed to patient [phone] regarding below message. RN informed patient a new urine sample needs to be collected. RN advised patient to return to the [facility] at [facility]. Pt verbalized understanding. Pt to F/U PRN. * Telephone Encounter - Ezekiel Almanzar MA - 04/17/2025 2:44 PM EDT Incoming call from [facility] to notify that due to overfill container CT/NG urine was not perform. Please advice if needs a re-collection. documented in this encounter Plan of Treatment Scheduled Orders Name Type Priority Associated Diagnoses Orde r Schedule Culture, Urine, Routine Microbiology Routine Dysuria Expected: 04/18/2025 (Approximate), Expires: 04/17/2026 Chlamydia/N. Gonorrhoeae, PCR, Urine Lab Routine Dysuria Expected: 04/18/2025 (Approximate), Expires: 04/18/2026 documented as of this encounter Visit Diagnoses Diagnosis Dysuria- Primary documented in this encounter Additional Health Concerns Assessment Noted Time PHQ-9 Depression Total Score: 4 11/02/19 25 11:24 AM EDT documented as of this encounter Care Teams Regulatory Compliance Specialist Relationship Specialty Start Date End Date Maral Melvin NP [address] [place] [id number] PCP - General Family Medicine 04/14/23 documented as of this encounter
--- OUTSIDE RECORDS SUMMARY | 2025-04-23 19:00 | XMS_ITS | Encounter Summary ---
Author Organization [employer] [facility] Address [address] [place] [address] [address] [place] [address] Care Team Providers Care Tape Edge Machine Operator Name Role Phone Elicia Bruce Primary Care Provider Maral Leonardo OIL AND GAS SUPERINTENDENT Primary Care Provider [phone] Encounter Details Date Type Department Care Team [...] on filedocumented in this encounter Care Teams Tape Edge Machine Operator Relationship Specialty Start Date End Date Elicia Bruce FNP PCP - General Family Medicine 08/10/21 04/13/23 Maral Melvin NP [address] [place] [address] PCP - General Family Medicine 04/14/23 documented as of this encounter
--- OUTSIDE RECORDS SUMMARY | 2025-04-23 19:00 | XMS_ITS | Clinical Summary ---
Author Organization [facility] Address [address] [place] [address] Care Team Providers Care Window Trimmer Name Role Phone Elicia Bruce KARINA Primary Care Provider [phone] Allergies No known active allergies Medications biotin [...] Department Care Team Description 02/19/2025 Transcribe Orders [facility] [address] [place] [id number] Sommer Xavier Lower urinary tract symptoms (LUTS) [...] patient's age to complete this topic Insurance [employer] HSNO/FREE CARE Care Teams Window Trimmer Relationship Specialty Start Date End Date Elicia Bruce NP [address] [address] PCP - General 02/18/22
--- OUTSIDE RECORDS SUMMARY | 2025-04-23 19:00 | XMS_ITS | Clinical Summary ---
Author Organization [facility] Address [address] [facility] [address] [place] [phone] Phone Care Team Providers Care Principal Software Engineer Name Role Phone Unknown, Unknown Primary Care [...] file Medical Devices Not on file Insurance [employer] [facility] FULL [employer] NET FULL [employer] [facility] [employer] NET FULL [employer] [facility] NET [facility]ULL [facility] [facility] FULL [employer] [facility] NET [facility]ULL [facility] NET FULL [facility] NET FULL [facility] FULL Care Teams Principal Software Engineer Relationship Specialty Start Date End Date Unknown, Unknown, PCP - General 02/01/18 Additional Source Comments The information contained in this document represents components of the legal health record. It is not the complete legal health record.[facility]
--- OUTSIDE RECORDS SUMMARY | 2025-04-23 19:00 | XMS_ITS | Encounter Summary ---
Author Organization [employer] Address [address] [facility] [address] [address] Care Team Providers Care Sheep Or Calf Grader Name Role Phone Elicia BruceP Primary Care Provider Maral Leonardo MILKER MACHINE Primary Care Provider [phone] Reason for Visit * Reason Onset Date Comments Appointment Request 07/12/2022 Encounter Details Date Type Department Care Team (Late st Contact Info) Description 07/12/2022 Telephone [facility] [address] [place] [phone] Elicia Bruce FNP Appointment Request Social History [...] Left Ear ) Please contact pt at [phone] documented in this encounter Plan of Treatment Not on file documented as of this encounter Visit Diagnoses Not on filedocumented in this encounter Care Teams Sheep Or Calf Grader Relationship Specialty Start Date End Date Elicia Bruce FNP PCP - General Family Medicine 08/10/21 04/13/23 Maral Melvin NP [address] [place] [id number] PCP - General Family Medicine 04/14/23 documented as of this encounter
[2025-04-24 04:48] LABS: CT PCR Urine NOT DETECTED (Not Detect.); NG PCR Urine NOT DETECTED (Not Detect.)
== END 2025-04-23 15:31 | disposition home or self-care (01) ==
LOC: HO.HHCL 15:30
PROVIDERS: Emergency Medicine; Nurse Practitioner; Visit Provider Family Medicine
DX: R30.0 Dysuria (principal); R35.0 Frequency of micturition; Z20.2 Contact with and (suspected) exposure to infections with a predominantly sexual mode of transmission
CPT/HCPCS: 36415; 84153; 87086; 87491; 87591